=== PATIENT | female | born 1945 | race Caucasian/White ===

== ENCOUNTER 2022-06-21 04:26 | Day surgery (SDC) | payer OTHER, BC ==
[2022-06-16 11:05] VITALS: BMI 22.0
[2022-06-21] MEDS ORDERED: ceFAZolin SODIUM 1 GM VIAL ONE (07:40)
[2022-06-21] MEDS ORDERED: BUPIVACAINE HCL/PF 0.5% (5MG/ML) 10 ML VIAL ONE (07:40)
[2022-06-21] MEDS ORDERED: GENTAMICIN SO4 80 MG/2 ML VIAL ONE (07:40)
[2022-06-21] MEDS ORDERED: LIDOCAINE 1%/EPI 1:100000 (20 ML MULTI DOSE VIAL) ONE (07:41)
[2022-06-21] MEDS ORDERED: MIDAZOLAM HCL 2 MG/2 ML SINGLE DOSE VIAL ONE (07:56)
[2022-06-21] MEDS ORDERED: PROPOFOL 40 ML ONE (08:08)
[2022-06-21] MEDS ORDERED: ROCURONIUM BROMIDE 50 MG/5 ML SYRINGE ONE (08:09)
[2022-06-21] MEDS ORDERED: ceFAZolin SODIUM 1 GM VIAL IVPB ONE (08:25)
[2022-06-21] MEDS ORDERED: NEOSTIGMINE METHYLSULFATE 0.5 MG/ML - 10 ML MDV ONE (10:13)
[2022-06-21] MEDS ORDERED: GLYCOPYRROLATE 0.2 MG/1 ML VIAL ONE ×2 (10:13)
[2022-06-21] MEDS ORDERED: ONDANSETRON 4 MG/2 ML VIAL IVPUSH PRN (10:35)
[2022-06-21] MEDS ORDERED: PROMETHAZINE HCL 25 MG/1 ML VIAL IVPUSH PRN (10:35)
[2022-06-21] MEDS ORDERED: oxyCODONE HCL 5 MG TABLET PO PRN (10:35)
[2022-06-21] MEDS ORDERED: ONDANSETRON 4 MG/2 ML VIAL ONE (10:41)
[2022-06-21] MEDS ORDERED: PROMETHAZINE HCL 25 MG/1 ML VIAL ONE (12:09)
[2022-06-21 13:43] VITALS: RESP 18
[2022-06-21 16:24] VITALS: BP 127/67; PULSE 74; TEMP 97.6
== END 2022-06-21 15:40 | disposition home or self-care (01) ==
LOC: JASU-SURG 04:26
PROVIDERS: ATTEND Plastic Surgery
PROC: 0HRV0JZ Replacement of Bilateral Breast with Synthetic Substitute, Open Approach (ICD-10-PCS; 2022-06-21)
PROC: 0HQU0ZZ Repair Left Breast, Open Approach (ICD-10-PCS; 2022-06-21)
PROC: 0HPU0JZ Removal of Synthetic Substitute from Left Breast, Open Approach (ICD-10-PCS; principal; 2022-06-21 08:00)
PROC: 0HPT0JZ Removal of Synthetic Substitute from Right Breast, Open Approach (ICD-10-PCS; 2022-06-21 08:00)
DX: N65.1 Disproportion of reconstructed breast (principal); Z85.3 Personal history of malignant neoplasm of breast
CPT/HCPCS: 19342; 19380; L8600; 88300-TC; 94760; C1789

== ENCOUNTER 2024-03-08 04:18 | Day surgery (SDC) | payer OTHER, BC ==
[2024-03-05 12:57] VITALS: BMI 23.2
[2024-03-08 08:57] VITALS: TEMP 97.5
[2024-03-08 09:01] VITALS: RESP 18
[2024-03-08 09:28] VITALS: BP 119/59; PULSE 82
== END 2024-03-08 09:28 | disposition home or self-care (01) ==
LOC: JASU-ENDO 04:18
PROVIDERS: ATTEND Internal Medicine Gastroenterology
PROC: 0DB68ZX Excision of Stomach, Via Natural or Artificial Opening Endoscopic, Diagnostic (ICD-10-PCS; principal; 2024-03-08 09:15)
DX: K29.50 Unspecified chronic gastritis without bleeding (principal)
CPT/HCPCS: 88305-TC; 88342-TC